=== PATIENT | male | born 1985 | race Caucasian/White ===

== ENCOUNTER 2017-11-18 07:13 | Emergency (ER) | payer BC ==
[~2017-11-18] VITALS: Ht 180.3 cm; Wt 137.8 kg
[2017-11-18] MEDS ORDERED: KETOROLAC 30 MG/1 ML IM ONE (08:00)
[2017-11-18] MEDS ORDERED: DIAZEPAM 5 MG TABLET PO ONE (08:00)
[2017-11-18] MEDS ORDERED: DIAZEPAM 5 MG TABLET ONE (08:03)
[2017-11-18] MEDS ORDERED: KETOROLAC 30 MG/1 ML ONE (08:03)
[2017-11-18 08:45] VITALS: BP 154/85
== END 2017-11-18 09:02 | disposition home or self-care (01) ==
LOC: ED 08:28
DX: S39.012A Strain of muscle, fascia and tendon of lower back, initial encounter (principal); I10 Essential (primary) hypertension; F17.210 Nicotine dependence, cigarettes, uncomplicated; X50.0XXA Overexertion from strenuous movement or load, initial encounter; Y93.89 Activity, other specified; Y92.89 Other specified places as the place of occurrence of the external cause; Y99.8 Other external cause status
CPT/HCPCS: 72110; 96372; 99284; J1885